=== PATIENT | female | born 1990 | race Caucasian/White ===

== ENCOUNTER 2022-10-19 07:51 | Inpatient (IN) ==
[2022-10-19] MEDS ORDERED: Lactated Ringers 1000 ml BAG 1,000 ML IV ONE (08:01)
[2022-10-19] MEDS ORDERED: Buffered Lidocaine 1% SYRIN 1 ml INTRADERM ONE (08:01)
[2022-10-19] MEDS ORDERED: Lactated Ringers 1000 ml BAG 1,000 ML IV SCH ×2 (09:00→11:00)
[2022-10-19 09:07] LABS: Urine Benzodiazepine Screen None Detected (None Detect); Urine Cannabinoids Screen None Detected (None Detect); Urine Opiates Screen None Detected (None Detect)
[2022-10-19] MEDS ORDERED: RHO D Immune Globulin (HUMAN) 300 MCG = 1,500 I.U. INJ IM PRN (10:05)
[2022-10-19] MEDS ORDERED: Dibucaine 1% OINT 28.35 GM TUBE PR PRN (10:05)
[2022-10-19] MEDS ORDERED: Witch Hazel PAD JAR TOPICAL PRN (10:05)
[2022-10-19] MEDS ORDERED: Glycerin ADULT 2.4 gm SUPP PR PRN (10:05)
[2022-10-19] MEDS ORDERED: Oxytocin in LR 20,000 MILLI.UNIT/1,000 ML BAG IV SCH (10:15)
[2022-10-19] MEDS ORDERED: miSOPROStol 100 mcg TAB PO ONE ×2 (10:55→17:36)
[2022-10-19] MEDS ORDERED: miSOPROStol 100 mcg TAB VAGINAL ONE (22:58)
[2022-10-20] MEDS ORDERED: miSOPROStol 100 mcg TAB PO ONE (03:36)
[2022-10-20] MEDS ORDERED: miSOPROStol 100 mcg TAB VAGINAL ONE ×2 (03:40→08:15)
[2022-10-20 09:23] LABS: ABS Basophils 0.1 10^3/uL (0.0-0.1); ABS Lymphocytes 1.3 10^3/uL (1.0-4.8); ABS Monocytes 0.5 10^3/uL (0.0-0.9); ABS Neutrophils 9.5 10^3/uL (1.5-7.6); ABS Nucleated RBC 0.01 10^3/ul; Eosinophil % 0.3 %; Hematocrit 33.8 % (35-45); Hemoglobin 11.3 g/dL (11.5-14.3); Lymphocyte % 11.6 %; Mean Corpuscular Hemoglobin 28.7 pg (27-33); Mean Corpuscular Hgb Conc 33.6 g/dL (31-36); Mean Corpuscular Volume 85.5 fL (80-97); Mean Platelet Volume 8.8 fL (7.5-11.2); Platelet Count 305 10^3/uL (150-450); Red Blood Count 3.95 10^6/uL (3.63-4.92); Red Cell Distribution Width 13.8 % (12-17); White Blood Count 11.4 10^3/uL (3.8-11.8)
[2022-10-20] MEDS ORDERED: OBEPIDURAL (200 ML) 200 ML EPIDURAL ONE (10:03)
[2022-10-20 10:04] LABS: Albumin 3.6 g/dL (3.2-5.2); Calcium 8.8 mg/dL (8.6-10.3); Potassium 4.1 mmol/L (3.5-5.0); Total Bilirubin 0.3 mg/dL (0.2-1.0)
[2022-10-20 10:10] LABS: Albumin/Globulin Ratio 1.3 (1-3); Creatinine, Serum 0.54 mg/dL (0.51-0.95); Globulin 2.7 g/dL (2-4); Total Protein 6.3 g/dL (6.4-8.9); eGFR CKD-EPI 125.4 (>60)
[2022-10-20] MEDS ORDERED: Lidocaine 1.5% EPI 1:200,000 30 ML SDV ONE (10:11)
[2022-10-20] MEDS ORDERED: Lactated Ringers 1000 ml BAG 1,000 ML IV ONE (11:14)
[2022-10-20] MEDS ORDERED: Phenylephrine 40 mcg/mL 10mL (400mcg) SYRINGE IV PUSH PRN ×2 (11:14)
[2022-10-20] MEDS ORDERED: Sodium Citrate/Citric Acid LIQ 15 ML UDC PO PRN (11:14)
[2022-10-20] MEDS ORDERED: Lactated Ringers 1000 ml BAG 1,000 ML IV SCH (12:00)
[2022-10-20] MEDS ORDERED: OBEPIDURAL (200 ML) 200 ML EPIDURAL SCH (12:00)
[2022-10-20 12:47] LABS: Urine Appearance Cloudy; Urine Bilirubin Negative (Negative); Urine Blood Negative (Negative); Urine Color Yellow; Urine Glucose Negative (Negative); Urine Ketones Negative (Negative); Urine Nitrite Negative (Negative); Urine Protein Negative (Negative); Urine Specific Gravity 1.014 (1.002-1.030); Urine Urobilinogen Negative (Negative)
[2022-10-20] MEDS ORDERED: Oxytocin in LR 20,000 MILLI.UNIT/1,000 ML BAG IV SCH (13:00)
[2022-10-21] MEDS ORDERED: Dibucaine 1% OINT 28.35 GM TUBE PR PRN (05:45)
[2022-10-21] MEDS ORDERED: Glycerin ADULT 2.4 gm SUPP PR PRN (05:45)
[2022-10-21] MEDS ORDERED: Witch Hazel PAD JAR TOPICAL PRN (05:45)
[2022-10-21] MEDS ORDERED: Lactated Ringers 1000 ml BAG 1,000 ML IV SCH (06:00)
[2022-10-21] MEDS ORDERED: Measles, Mumps,Rubella VACC 0.5 ML/VIAL SUBCUT ONE (06:07)
[2022-10-22 08:01] LABS: ABS Eosinophils 0.1 10^3/uL (0.0-0.5); ABS Lymphocytes 1.8 10^3/uL (1.0-4.8); ABS Monocytes 0.5 10^3/uL (0.0-0.9); ABS Neutrophils 7.3 10^3/uL (1.5-7.6); ABS Nucleated RBC 0.01 10^3/ul; Eosinophil % 1.5 %; Hematocrit 31.6 % (35-45); Hemoglobin 10.7 g/dL (11.5-14.3); Lymphocyte % 18.3 %; Mean Corpuscular Hemoglobin 29.2 pg (27-33); Mean Corpuscular Hgb Conc 33.9 g/dL (31-36); Nucleated Red Blood Cells % 0.1 /100 WBC (0.0-0.4); Platelet Count 295 10^3/uL (150-450); Red Blood Count 3.67 10^6/uL (3.63-4.92); Red Cell Distribution Width 13.9 % (12-17); White Blood Count 9.7 10^3/uL (3.8-11.8)
[2022-10-22 08:04] VITALS: BP 123/76
[2022-10-22] MEDS ORDERED: Measles, Mumps,Rubella VACC 0.5 ML/VIAL SUBCUT ONE (11:00)
== END 2022-10-22 12:05 | disposition home or self-care (01) | DRG 560 ==
LOC: MCHOBOUT 07:51 → MCHOB 08:34
PROVIDERS: ADMIT Obstetrics & Gynecology; ATTEND Obstetrics & Gynecology